=== PATIENT | male | born 1965 | race Hispanic/Latino ===

== ENCOUNTER 2017-07-12 20:23 | Inpatient (IN) | payer SELFPAY ==
[~2017-07-12] VITALS: Ht 175.3 cm; Wt 104.3 kg
[2017-07-12] MEDS ORDERED: AZITHROMYCIN 500MG/NS 250 ML 250 ML IV STA (20:58)
[2017-07-12] MEDS ORDERED: CEFTRIAXONE SOD 1 GM VIAL IV STA (20:58)
[2017-07-12] MEDS ORDERED: SODIUM CHLORIDE 0.9% 1000ML 1,000 ML IV ONE ×3 (21:00→21:45)
[2017-07-12 21:26] LABS: BASOPHILS % 0.1 % (0.0-1.0); HEMATOCRIT 43.9 % (38.2-49.6); LYMPHOCYTES # (AUTO) 2.5 (1.0-3.2); LYMPHOCYTES % 7.1 % (18.0-39.1); MEAN CORPUSCULAR HEMOGLOBIN 28.3 pg (28-32); MEAN CORPUSCULAR HGB CONC 31.9 g/dL (31-35); MEAN CORPUSCULAR VOLUME 88.7 fL (81-99); MONOCYTES # (AUTO) 1.6 (0.2-0.8); MONOCYTES % 4.5 % (4.4-11.3); NEUTROPHILS # (AUTO) 30.3 (2.1-6.9); NEUTROPHILS % 87.4 % (38.7-80.0); PLATELET COUNT 245 x10e3/uL (140-360); RED BLOOD COUNT 4.95 x10e6/uL (4.3-5.7); RED CELL DISTRIBUTION WIDTH 14.6 % (11.7-14.4)
[2017-07-12 21:33] LABS: INR 1.06; PROTHROMBIN TIME 14.4 seconds (11.9-14.5)
[2017-07-12 21:34] LABS: PARTIAL THROMBOPLASTIN TIME 28.6 seconds (23.8-35.5)
[2017-07-12 21:43] LABS: ALBUMIN 2.9 g/dL (3.5-5.0); ALBUMIN/GLOBULIN RATIO 0.7 (0.8-2.0); ANION GAP 14.4 mmol/L (8-16); CALCIUM 8.9 mg/dL (8.4-10.2); CREATININE, SERUM 2.52 mg/dL (0.72-1.25); POTASSIUM 3.4 mmol/L (3.5-5.1)
--- NOTE | 2017-07-12 21:55 | Diagnostic Imaging Report ---
EXAMINATION: CHEST SINGLE (PORTABLE) INDICATION: Cough. COMPARISON: None FINDINGS: TUBES and LINES: None. LUNGS: Lungs are well inflated. There is a 6.2 cm well-circumscribed opacity in the right upper lobe. Additional rounded opacities are noted in the left lung base. PLEURA: No pleural effusion or pneumothorax. HEART AND MEDIASTINUM: Cardiac size is mildly enlarged. BONES AND SOFT TISSUES: No acute osseous lesion. Soft tissues are unremarkable. UPPER ABDOMEN: No free air under the diaphragm. IMPRESSION: Findings are suspicious for bilateral pulmonary masses in the appropriate clinical setting. CT of the chest with IV contrast is recommended Signed by: Dr. Samm Champagne M.D. on 07/12/2017 9:51 PM
[2017-07-12] MEDS ORDERED: ALBUTEROL SULF 0.083% NEB SOLN 3 ML NEB NEB STA (22:06)
[2017-07-12] MEDS ORDERED: SODIUM CHLORIDE 0.9% 1000ML 1,000 ML ONE (22:07)
[2017-07-12] MEDS ORDERED: IPRATROPIUM BROMIDE 0.02% 2.5 ML NEB NEB ONE (22:15)
[2017-07-12 22:25] LABS: BAND NEUTROPHILS % (MANUAL) 32 %; LYMPHOCYTES % (MANUAL) 14 % (19-48); METAMYELOCYTES % (MANUAL) 3 % (0-0); MONOCYTES % (MANUAL) 2 % (3.4-9.0); NEUTROPHILS % (MANUAL) 49 % (40-74)
[2017-07-12 22:28] LABS: PLATELET ESTIMATE ADEQUATE; PLATELET MORPHOLOGY COMMENT NORMAL; RBC MORPHOLOGY COMMENT NORMAL
[2017-07-12 22:29] LABS: TOXIC GRANULATION SLIGHT
[2017-07-13] VITALS (28 sets, daily range): BP systolic 56–151; BP diastolic 36–108
[2017-07-13] MEDS ORDERED: SODIUM CHLORIDE 0.9% 1000ML 1,000 ML ONE (00:19)
--- NOTE | 2017-07-13 00:58 | Diagnostic Imaging Report ---
EXAM: CT Chest WITHOUT contrast 07/12/2017 10:02 PM INDICATION: Chest x-ray finding of potential mass in the right upper chest and left lower lobe COMPARISON: Chest x-ray on 07/12/2017 TECHNIQUE: Chest was scanned utilizing a multidetector helical scanner from the lung apex through the level of the adrenal glands without administration of IV contrast. Absence of intravenous contrast decreases sensitivity for detection of lymphadenopathy and vascular pathology. Coronal and sagittal reformations were obtained. Routine protocol was performed. IV CONTRAST: None RADIATION DOSE: Total DLP: 613.85 mGy*cm Estimated effective dose: (DLP x 0.014 x size factor) mSv COMPLICATIONS: None FINDINGS: LINES/ TUBES: None. LUNGS AND AIRWAYS: Large right upper lobe soft tissue opacity relatively homogeneous centrally with some peripheral haziness and air bronchogram compatible with round pneumonia. Similar-appearing large left lower lobe and minimally left upper lobe airspace disease consistent with multifocal pneumonia. Airways are normal. PLEURA: Trace of left pleural effusion. HEART AND MEDIASTINUM: The thyroid gland is normal. Few reactive lymph nodes are visualized in the right paratracheal and subcarinal stations. The heart is normal in size.. There is no pericardial effusion. UPPER ABDOMEN: Limited non-contrast views of the upper abdomen show no abnormality within the visualized liver, spleen, pancreas, or kidneys. The adrenal glands are normal. BONES: The visualized bony thorax is within normal limits. SOFT TISSUES: Unremarkable. IMPRESSION: Findings are compatible with severe multifocal pneumonia. However, follow-up until resolution after treatment is recommended to exclude underlying malignancy. Signed by: Dr. Samm Champagne M.D. on 07/13/2017 12:54 AM
[2017-07-13] MEDS ORDERED: SODIUM CHLORIDE 0.9% 1000ML 1,000 ML IV SCH ×2 (01:00→02:19)
[2017-07-13] MEDS ORDERED: VANCOMYCIN 1GM/NS 250 ML 250 ML IV STA (02:10)
[2017-07-13] MEDS ORDERED: VASOPRESSIN 100 UNIT in DEXTROSE 5% 100ML 95 ML IV PRN (02:15)
[2017-07-13] MEDS ORDERED: ASPIRIN 81 MG CHEW TAB PO ONE (02:30)
[2017-07-13] MEDS ORDERED: VANCOMYCIN HCL 1GM/NS 250 ML BAG IV SCH (02:30)
[2017-07-13] MEDS ORDERED: NOREPINEPHRINE BITARTRATE/ NS 250 ML IV PRN (02:45)
[2017-07-13] MEDS: KCL 20MEQ/.9 SOD CHL 1,000 ML IV SCH ×2 (02:56→10:35)
[2017-07-13] MEDS ORDERED: ALBUTEROL SULF 0.083% NEB SOLN 3 ML NEB NEB SCH (03:00)
[2017-07-13 04:00] LABS: TROPONIN I 0.019 ng/mL (0-0.300)
[2017-07-13 05:22] LABS: KETONES,URINE NEGATIVE (NEGATIVE); LEUKOCYTE ESTERASE ,URINE NEGATIVE (NEGATIVE); NITRITE,URINE NEGATIVE (NEGATIVE); URINE UROBILINOGEN 0.2 mg/dL (0.2 - 1)
[2017-07-13 05:30] LABS: BILIRUBIN,URINE 1+ (NEGATIVE); CLARITY,URINE CLOUDY (CLEAR); COLOR,URINE YELLOW (YELLOW); PROTEIN,URINE DIPSTICK 2+ (NEGATIVE)
[2017-07-13 05:31] LABS: AMPHETAMINES SCREEN,URINE NEGATIVE (NEGATIVE); BENZODIAZEPINES SCREEN,URINE NEGATIVE (NEGATIVE); CANNABINOIDS SCREEN,URINE NEGATIVE (NEGATIVE); PHENCYCLIDINE SCREEN,URINE NEGATIVE (NEGATIVE)
[2017-07-13 05:33] LABS: AMORPHOUS SEDIMENT,URINE MODERATE (FEW); BACTERIA,URINE RARE /HPF; EPITHELIAL CELLS,URINE FEW /LPF; RBC,URINE 21-50 /HPF (0-5); WBC,URINE (MAN) 0-5 /HPF (0-5)
[2017-07-13] MEDS ORDERED: IPRATROPIUM BROMIDE 0.02% 2.5 ML NEB NEB SCH (07:00)
[2017-07-13] MEDS ORDERED: VASOPRESSIN INJ 20 UNIT/ML VIAL ONE (07:02)
[2017-07-13] MEDS ORDERED: ACETAMINOPHEN 1000 MG/100 ML IV PRN (09:00)
[2017-07-13] MEDS ORDERED: CEFTRIAXONE SOD 1 GM VIAL IV SCH (09:00)
[2017-07-13] MEDS ORDERED: AZITHROMYCIN 500MG/SOD CHL 0.9% 250ML BAG IV SCH (09:00)
[2017-07-13] MEDS ORDERED: PANTOPRAZOLE 40 MG 10ML VIAL IV SCH (09:00)
--- NOTE | 2017-07-13 09:03 | History and Physical ---
REASON FOR ADMISSION: 1. Severe multifocal pneumonia. 2. Sepsis. HISTORY OF PRESENT ILLNESS: This patient is a gentleman who had presented with a 2 week history of cough and congestion who just came back from a 2-week stay in [place]. He was having cough and congestion. When he was brought into the emergency room he was noted to be hypoxic, hypotensive and showing evidence of sepsis. CT scan showed severe multifocal pneumonia and so he is being admitted for further evaluation. PAST MEDICAL HISTORY: Per the patient. MEDICATIONS: None. ALLERGIES: NONE. SOCIAL HISTORY: Nonsmoker, nondrinker. FAMILY HISTORY: Hypertension. PHYSICAL EXAMINATION VITAL SIGNS: Temperature 98.6, blood pressure 120/72, pulse 120, sats 96% on BiPAP. GENERAL: He appears to be in mild distress, lying in the bed, but he is communicative and lucid. NECK: Supple. CARDIOVASCULAR: Regular rate and rhythm. LUNGS: Bilateral rhonchi noted in all lung stone. ABDOMEN: Soft, good bowel sounds, nontender. EXTREMITIES: No clubbing or cyanosis. NEUROLOGIC: Nonfocal. ASSESSMENT AND PLAN 1. Severe pneumonia with sepsis. Continue with antibiotic care. Will consult Dr. Cooley and Dr. Palomino of pulmonary to help evaluate the patient. 2. Leukocytosis. Continue to monitor. 3. Chronic kidney disease, stage 3. Continue to monitor. 4. Possible diabetes. Will continue to monitor. Please see hospital chart for full details. Job#: [id number] GH
[2017-07-13] MEDS ORDERED: SODIUM BICARBONATE 8.4% INJ 50 ML SYR IV ONE ×2 (09:30→13:00)
[2017-07-13] MEDS ORDERED: PROPOFOL IV EMULSION 10MG/ML 100 ML ONE (09:39)
[2017-07-13] MEDS ORDERED: MIDAZOLAM HCL 25 MG in SODIUM CHLORIDE 0.9% 50ML 45 ML IV PRN (10:15)
[2017-07-13 10:31] LABS: ABG PCO2 29 mmHg (41-51); ABG PH 7.24 (7.31-7.41); ABG PO2 124 mmHg (80-105)
[2017-07-13 10:32] LABS: ABG HCO3 12 mmol/L (23-28)
--- NOTE | 2017-07-13 10:49 | Diagnostic Imaging Report ---
EXAMINATION: Chest, CHEST SINGLE (PORTABLE) INDICATION: Chest pain COMPARISON: Portable chest 07/12/2017. CT chest 07/13/2017 FINDINGS: LINES: Endotracheal catheter is present with the tip projecting over the expected region of the trachea, positioned 3 cm from the roberto. Heart: Normal cardiac silhouette. Vascular: The pulmonary vasculature is within normal limits. Atherosclerotic calcifications of the aortic arch. Mediastinum: No mediastinal, hilar, or axillary mass or lymphadenopathy. Lungs: No parenchymal mass. Interval increase of the bilateral multifocal airspace opacities. Pleura: Small left pleural effusion. No pneumothorax. Bones: No acute osseous abnormality. Degenerative changes of the thoracic spine. Soft tissues: Normal. Impression: Interval progression of the pneumonia. Signed by: Dr. Dominik Gale M.D. on 07/13/2017 10:46 AM
[2017-07-13] MEDS ORDERED: FENTANYL CITRATE INJ 2,000 MCG in SODIUM CHLORIDE 0.9% 250ML 210 ML IV PRN ×2 (11:00→11:15)
[2017-07-13 12:51] LABS: ABG HCO3 16 mmol/L (23-28); ABG PCO2 42 mmHg (41-51); ABG PO2 127 mmHg (80-105)
[2017-07-13] MEDS ORDERED: HYDROCORTISONE SOD SUCCINATE 100 MG VIAL IV ONE (13:00)
[2017-07-13] MEDS ORDERED: HYDROCORTISONE SOD SUCCINATE 100 MG VIAL ONE (13:24)
--- NOTE | 2017-07-13 13:27 | Diagnostic Imaging Report ---
EXAM: Complete Abdominal Ultrasound INDICATION: Elevated liver enzymes COMPARISON: None. TECHNIQUE: Transverse and longitudinal images of the upper abdomen were obtained. FINDINGS: Liver: Size: 15.3 cm in the right midclavicular line, normal Appearance: Increased echogenicity, smooth contour Mass: No focal masses Main Portal Vein: 1.2 cm, normal size with hepatopetal flow. Gallbladder: Stones/Sludge: None. Wall: 5.0 mm. Appearance: No pericholecystic fluid. No gallbladder hydrops. Sonographic Austin's Sign: Negative Bile Ducts: Intrahepatic Ducts: No dilatation Common bile duct measures 4.0 mm. no dilatation Pancreas: The pancreas was insufficiently visualized to comment secondary to overlying bowel gas. Right Kidney: Size: 11.0 cm Echogenicity: Normal Parenchymal thickness: Normal Collecting System: No hydronephrosis Stone: None Cyst/Mass: None Vessels: Aorta: Visualized portions are normal Inferior Vena Cava: Visualized portions are normal Free Fluid: No ascites or pleural effusion IMPRESSION: Hepatic steatosis. No acute sonographic abnormality. Signed by: Dr. Dominik Gale M.D. on 07/13/2017 1:23 PM
[2017-07-13 13:39] LABS: CREATINE KINASE MB 8.6 ng/mL (0.00-5.00); TROPONIN I 0.073 ng/mL (0-0.300)
[2017-07-13] MEDS ORDERED: OSELTAMIVIR PHOSPHATE 75 MG CAP LEFT EAR SCH (17:00)
[2017-07-13] MEDS ORDERED: OSELTAMIVIR PHOSPHATE 75 MG CAP PO SCH (17:00)
[2017-07-13] MEDS ORDERED: SUCCINYLCHOLINE 200 MG/10 ML SYR ONE (18:27)
[2017-07-13] MEDS ORDERED: ETOMIDATE 2 MG/ML 10 ML INJ IV ONE (18:27)
[2017-07-13] MEDS ORDERED: AZITHROMYCIN 500MG/NS 250 ML 250 ML IV SCH (21:00)
[2017-07-13] MEDS ORDERED: HEPARIN SOD (PORCINE) 5,000 UNIT/ML VIAL SC SCH (21:00)
[2017-07-14] MEDS ORDERED: VANCOMYCIN 1GM/NS 250 ML 250 ML IV SCH (02:00)
[2017-07-14] MEDS ORDERED: PANTOPRAZOLE 40 MG 10ML VIAL IV SCH (09:00)
--- NOTE | 2017-07-14 16:18 | Consultation ---
DATE OF CONSULTATION: July 13, 2017 PULMONARY CONSULTATION An unfortunate 41-year-old gentleman visiting from [place]. He became short of breath and collapsed at home. He has had a cough productive of bloody sputum. He has been dyspneic and sweating. Progressive respiratory failure in the emergency room requiring severe metabolic acidosis and lactic acidosis. He was intubated at ____ this morning. History is unobtainable except from the chart. He apparently was previously well and nonsmoker. PHYSICAL EXAMINATION VITAL SIGNS: Temperature 100.7, pulse 116, respirations 32, blood pressure on admission in the ER was 87/38. GENERAL: A burly white male, intubated and sedated. HEAD: Normocephalic, atraumatic. LUNGS: Bilateral rales and rhonchi. HEART: Regular rhythm. ABDOMEN: Nontender. EXTREMITIES: Edematous. IMPRESSION 1. Sepsis. 2. Pneumonia. 3. Impending ARDS. 4. Bilateral pulmonary infiltrates. 5. Influenza suspected though influenza spot test was negative. 6. Amylase is moderately elevated at 221 as well. PLAN: Continue mechanical ventilator support. Request nephrology opinion in view of impending ATN. Check ultrasound of the abdomen. Check ANCA in view of the bloody sputum and impending renal failure. Urinalysis also revealed elevated white counts. Thank you for this kind referral. Job#: [id number]
== END 2017-07-13 15:20 | disposition short-term general hospital (02) | DRG 871 ==
LOC: ER 20:23 → ERHOLD 07-13 02:19
PROVIDERS: ADMIT Internal Medicine; ATTEND Internal Medicine
PROC: 0BH17EZ Insertion of Endotracheal Airway into Trachea, Via Natural or Artificial Opening (ICD-10-PCS; principal; 2017-07-13)
PROC: 5A1935Z Respiratory Ventilation, Less than 24 Consecutive Hours (ICD-10-PCS; 2017-07-13)
PROC: 06HM33Z Insertion of Infusion Device into Right Femoral Vein, Percutaneous Approach (ICD-10-PCS; 2017-07-13)
PROC: 3E033XZ Introduction of Vasopressor into Peripheral Vein, Percutaneous Approach (ICD-10-PCS; 2017-07-13)
DX: A41.9 Sepsis, unspecified organism (principal); N17.0 Acute kidney failure with tubular necrosis; J96.01 Acute respiratory failure with hypoxia; R65.21 Severe sepsis with septic shock; E87.2 Acidosis; J18.9 Pneumonia, unspecified organism; N18.3 Chronic kidney disease, stage 3 (moderate); R04.2 Hemoptysis; J11.1 Influenza due to unidentified influenza virus with other respiratory manifestations; E87.6 Hypokalemia; Z78.1 Physical restraint status; E11.9 Type 2 diabetes mellitus without complications
CPT/HCPCS: 31500; 36415; 36600; 71010; 71250; 76705; 80053; 80307; 80320; 81001; 82140; 82150; 82550; 82553; 82805; 83605; 83690; 83735; 84484; 85025; 85610; 85730; 86021; 87040; 87086; 87400; 93005; 94002; 94640; 94660; 96360; 96374; 96376; J0456; J0696; J1720; J2250; J3370; J7030; J7050